=== PATIENT | female | born 1980 | race African-American/Black ===

== ENCOUNTER 2018-05-31 10:24 | Emergency (ER) | payer OTHER ==
[2018-05-31 10:29] VITALS: TEMP 97.7; BMI 34.3
--- NOTE | 2018-05-31 10:51 | PDOC ---
History of Present Illness - General Chief Complaint: Pain, Acute Stated Complaint: ABD PAIN, WEAKNESS Time Seen by Provider: 05/31/18 10:46 History Source: Patient Exam Limitations: No Limitations - History of Present Illness Initial Comments: 05/31/18 13:37 Patient is a 38-year-old female no past medical history who presents to the emergency room today with lower abdominal pain, shortness of breath and generalized weakness for 2 weeks. Patient states she had cold-like symptoms starting 2 weeks ago. She states that they resolved after about a week. However she states that she still feels weak and like she cannot catch her breath. She also admits to lower abdominal pain. Patient states that she was recently seen by her NET DEVELOPER. She was given Plan B to prevent . She also had STD testing done which she states was negative for both GC and chlamydia. Patient does not want STD testing done today. Patient is to nausea and vomiting. Denies fevers, chills, chest pain, palpitations, cough, diarrhea, constipation, frequency, urgency and hematuria. Past History - Travel Traveled outside of the country in the last 30 days: No Close contact w/someone who was outside of country & ill: No - Past Medical History Allergies/Adverse Reactions: Allergies Allergy/AdvReac Type Severity Reaction Status Date / Time No Known Allergies Allergy Verified 05/31/18 10:29 Home Medications: Ambulatory Orders Vit No.129/Iron/Folic [ One Daily Tablet] 1 each PO DAILY #14 tablet 05/31/18 COPD: No - Suicide/Smoking/Psychosocial Hx Smoking History: Never smoked Review of Systems - Review of Systems Able to Perform ROS?: Yes Comments:: 05/31/18 11:20 CONSTITUTIONAL: Present: generalized weakness Absent: fever, chills, diaphoresis, generalized weakness, malaise, loss of appetite HEENT: Absent: rhinorrhea, nasal congestion, throat pain, throat swelling, difficulty swallowing, mouth swelling, ear pain, eye pain, visual Changes CARDIOVASCULAR: Absent: chest pain, loss of consciousness, palpitations, irregular heart rate, peripheral edema RESPIRATORY: Present: shortness of breath Absent: cough, dyspnea with exertion, orthopnea, wheezing, stridor, hemoptysis GASTROINTESTINAL: Present: abdominal pain Absent: abdominal pain, abdominal distension, nausea, vomiting, diarrhea, constipation, melena, hematochezia GENITOURINARY: Absent: dysuria, frequency, urgency, hesitancy, hematuria, flank pain, genital pain MUSCULOSKELETAL: Absent: myalgia, arthralgia, joint swelling SKIN: Absent: rash, itching, pallor HEMATOLOGIC/IMMUNOLOGIC: Absent: easy bleeding, easy bruising, lymphadenopathy, frequent infections ENDOCRINE: Absent: unexplained weight gain, unexplained weight loss, heat intolerance, cold intolerance NEUROLOGIC: Absent: headache, focal weakness or paresthesias, dizziness, unsteady gait, seizure, mental status changes, bladder or bowel incontinence PSYCHIATRIC: Absent: anxiety, depression, suicidal or homicidal ideation, hallucinations. Is the patient limited Portuguese proficient: No *Physical Exam - Vital Signs Last Vital Signs Temp Pulse Resp BP Pulse Ox 97.7 F 75 18 133/76 100 05/31/18 10:27 05/31/18 10:27 05/31/18 10:27 05/31/18 10:27 05/31/18 10:27 - Physical Exam Comments: 05/31/18 11:20 GENERAL: Well developed, well nourished. Awake and alert. No acute distress. HEENT: Normocephalic, atraumatic. PERRLA, EOMI. No conjunctival pallor. Sclera are non- icteric. Moist mucous membranes. Oropharynx is clear. NECK: Supple. Full ROM. No JVD. Carotid pulses 2+ and symmetric, without bruits. No thyromegaly. No lymphadenopathy. CARDIOVASCULAR: Regular rate and rhythm. No murmurs, rubs, or gallops. Distal pulses are 2+ and symmetric. PULMONARY: No evidence of respiratory distress. Lungs clear to auscultation bilaterally. No wheezing, rales or rhonchi. ABDOMINAL: Soft. R adenexal tenderness. Non-distended. No rebound or guarding. No organomegaly. Normoactive bowel sounds. MUSCULOSKELETAL Normal range of motion at all joints. No bony deformities or tenderness. No CVA tenderness. EXTREMITIES: No cyanosis. No clubbing. No edema. No calf tenderness. SKIN: Warm and dry. Normal capillary refill. No rashes. No jaundice. NEUROLOGICAL: Alert, awake, appropriate. Cranial nerves 2-12 intact. No deficits to light touch and temperature in face, upper extremities and lower extremities. No motor deficits in the in face, upper extremities and lower extremities. Normoreflexic in the upper and lower extremities. Normal speech. Toes are down- going bilaterally. Gait is normal without ataxia. PSYCHIATRIC: Cooperative. Good eye contact. Appropriate mood and affect. Moderate Sedation - Procedure Monitoring Vital Signs: Procedure Monitoring Vital Signs Temperature 97.7 F 05/31/18 10:27 Pulse Rate 75 05/31/18 10:27 Respiratory Rate 18 05/31/18 10:27 Blood Pressure 133/76 05/31/18 10:27 O2 Sat by Pulse Oximetry (%) 100 05/31/18 10:27 ED Treatment Course - LABORATORY CBC & Chemistry Diagram: 05/31/18 11:00 05/31/18 11:00 Medical Decision Making - Medical Decision Making 05/31/18 13:29 Pt is a 38 y/o F who presents to the ED for two weeks of generalized weakness, nausea, vomiting, and cough; DDx includes but is not limited to , viral illness, PE, UTI, appendicitis -On exam, lungs CTAB, abdomen with RLQ tenderness, suprapubic tenderness and minimal LLQ discomfort -EKG: rate 66 BPM, NRS, qTC 408. Normal intervals normal axis, No acute ST-T wave changes -Urine (+); No vaginal bleeding. TVUS shows a single intrauterine with with a heart rate of 133. -D-Dimer is negative; unlikely PE -Urine is negative for infection -Symptoms most likely caused from ; pt feels better after receiving IV fluids -DC home to f/u with her NET DEVELOPER -I discussed the physical exam findings, ancillary test results and final diagnoses with the patient. I answered all of the patient's questions. The patient was satisfied with the care received and felt comfortable with the discharge plan and treatment plan. The Patient agrees to follow up with the primary care physician/specialist within 24-72 hours. Return precautions were given. *DC/Admit/Observation/Transfer Diagnosis at time of Disposition: Qualifiers: Weeks of gestation: less than 8 weeks Qualified Code(s): Z3A.01 - Less than 8 weeks gestation of - Discharge Dispostion Disposition: HOME Condition at time of disposition: Stable Decision to Admit order: No - Referrals Referrals: Ken Lanza MD [Staff Physician] - - Patient Instructions Printed Discharge Instructions: DI for -- Discomforts and Remedies Additional Instructions: You ultrasound shows a single intrauterine with a heart rate of 133 Your symptoms are most likely a result of your Your lab work was normal today Please start vitamins Follow up with your NET DEVELOPER as soon as possible Return to the ED for worsening pain, nausea, vomiting, weakness, or if you have any changes in your symptoms - Post Discharge Activity Forms/Work/School Notes: Back to Work
[2018-05-31] MEDS ORDERED: SODIUM CHLORIDE 1,000 ML IV STA (10:59)
--- NOTE | 2018-05-31 11:01 | PDOC ---
*Physical Exam - Vital Signs Last Vital Signs Temp Pulse Resp BP Pulse Ox 97.7 F 75 18 133/76 100 05/31/18 10:27 05/31/18 10:27 05/31/18 10:27 05/31/18 10:27 05/31/18 10:27 ED Treatment Course - LABORATORY CBC & Chemistry Diagram: 05/31/18 11:00 05/31/18 11:00 Medical Decision Making - Medical Decision Making 05/31/18 10:54 38 yo F presenting with shortness of breath and gasping for air Pt has had uri symptoms for the past 2 weeks since then she has noted shortness of breath Will do Labs CXR D dimer Re assess Pt seen by Midlevel Provider under my direct supervision Pt interviewed and examined Ancillary studies reviewed I agree with plan as outlined by Midlevel Provider 05/31/18 11:04 05/31/18 11:12 EKG - Twelve-lead EKG was performed and reviewed by me. There is normal sinus rhythm with a normal rate. The axis is normal. The intervals are normal. There are no ST or T wave abnormalities. Impression: Normal twelve-lead EKG 06/01/18 18:02 Laboratory Tests 05/31/18 05/31/18 05/31/18 11:00 11:00 11:00 WBC 6.1 Hgb 13.8 Hct 40.2 Plt Count 298 D-Dimer 455 Beta HCG, Quant 35833.5 US: IUP 6 weeks 4 days Will discharge to home Follow up with obstetrics Return to the ER for any other concerns or complaints *DC/Admit/Observation/Transfer Diagnosis at time of Disposition: - Discharge Dispostion Disposition: HOME Condition at time of disposition: Stable - Prescriptions Prescriptions: Vit No.129/Iron/Folic [ One Daily Tablet] 1 each PO DAILY #14 tablet - Referrals Referrals: Ken Lanza MD [Staff Physician] - - Patient Instructions Printed Discharge Instructions: DI for -- Discomforts and Remedies Additional Instructions: You ultrasound shows a single intrauterine with a heart rate of 133 Your symptoms are most likely a result of your Your lab work was normal today Please start vitamins Follow up with your EXPLOSIVE MAN as soon as possible Return to the ED for worsening pain, nausea, vomiting, weakness, or if you have any changes in your symptoms - Post Discharge Activity Forms/Work/School Notes: Back to Work
[2018-05-31 11:19] LABS: URINE APPEARANCE SLCLOUDY; URINE BILIRUBIN NEGATIVE (<2.0 mg/dL); URINE GLUCOSE (UA) NEGATIVE (NEGATIVE); URINE KETONE NEGATIVE (NEGATIVE); URINE LEUK ESTERASE TRACE (NEGATIVE); URINE NITRITE NEGATIVE (NEGATIVE); URINE PROTEIN NEGATIVE (NEGATIVE); URINE UROBILINOGEN NEGATIVE mg/dL (0.2-1.0)
[2018-05-31 11:20] LABS: BASO % 0.5 % (0-2.0); EOS % 0.3 % (0-4.5); HEMATOCRIT 40.2 % (32.4-45.2); HEMOGLOBIN 13.8 GM/dL (10.7-15.3); LYMPH % 27.6 % (8-40); MCH 28.2 pg (25.7-33.7); MCHC 34.2 g/dl (32.0-36.0); MEAN CELL VOLUME 82.4 fl (80-96); MEAN PLT VOLUME 8.2 fl (7.5-11.1); MONO % 8.4 % (3.8-10.2); NEUT % 63.2 % (42.8-82.8); PLATELET COUNT 298 K/MM3 (134-434); RBC 4.88 M/mm3 (3.60-5.2); RDW 15.9 % (11.6-15.6); WHITE BLOOD COUNT 6.1 K/mm3 (4.0-10.0)
[2018-05-31 11:23] LABS: EPI CELLS RARE /HPF (FEW); URINE BACTERIA RARE /hpf (NONE SEEN); URINE COLOR DK YELLOW; URINE MUCUS MANY
[2018-05-31 11:33] LABS: INR 1.08 (0.83-1.09); PROTHROMBIN TIME (PATIENT) 12.7 SEC (9.7-13.0)
[2018-05-31 11:49] LABS: ALBUMIN 3.4 g/dl (3.4-5.0); ALK PHOS 87 U/L (45-117); ANION GAP 6 MMOL/L (8-16); BILIRUBIN,TOTAL 0.3 mg/dL (0.2-1); BLOOD UREA NITROGEN 10 mg/dL (7-18); CALCIUM 9.4 mg/dL (8.5-10.1); CHLORIDE 104 mmol/L (98-107); CO2 27 mmol/L (21-32); CREATININE 0.6 mg/dL (0.55-1.3); GLUCOSE,RANDOM 98 mg/dL (74-106); POTASSIUM 4.2 mmol/L (3.5-5.1); SGOT/AST 12 U/L (15-37); SGPT/ALT 20 U/L (13-61); SODIUM 137 mmol/L (136-145); TOT PROT 7.5 g/dl (6.4-8.2)
--- NOTE | 2018-05-31 11:53 | EKG ---
Test Reason : Blood Pressure : / mmHG Vent. Rate : 066 BPM Atrial Rate : 066 BPM P-R Int : 156 ms QRS Dur : 100 ms QT Int : 390 ms P-R-T Axes : 059 019 033 degrees QTc Int : 408 ms NORMAL SINUS RHYTHM NORMAL ECG NO PREVIOUS ECGS AVAILABLE Confirmed by MARGOT BERNARD, GREGORY ([id number]) on 05/31/2018 11:53:24 AM Referred By: Confirmed By:GREGORY FROST MD
[2018-05-31 13:59] VITALS: BP 129/64; PULSE 71
== END 2018-05-31 13:59 | disposition home or self-care (01) ==
LOC: JER 10:24
PROC: 3E0337Z Introduction of Electrolytic and Water Balance Substance into Peripheral Vein, Percutaneous Approach (ICD-10-PCS; principal; 2018-05-31)
DX: O26.891 Other specified pregnancy related conditions, first trimester (principal); Z3A.01 Less than 8 weeks gestation of pregnancy
CPT/HCPCS: 36415; 76817-TC; 80053; 81003; 81015; 84702; 84703; 85025; 85379; 85610; 87086; 93005; 93010; 96360; 99283-25; J7030

== ENCOUNTER → 2018-09-19 | Emergency (ER) | payer OTHER ==
[~2018-09-19] MED LIST: KETOROLAC TROMETHAMINE 60 MG/2 ML VIAL IM ONE; KETOROLAC TROMETHAMINE 60 MG/2 ML VIAL ONE; LIDOCAINE 5% TOPICAL PATCH ONE; LIDOCAINE 5% TOPICAL PATCH TP ONE; LIDOCAINE PATCH REMOVAL MC SCH
[2018-09-19 08:48] VITALS: BP 137/85; PULSE 67; TEMP 97.9; BMI 37.2
--- NOTE | 2018-09-19 09:14 | PDOC ---
History of Present Illness - General Chief Complaint: Pain, Acute Stated Complaint: STIFF NECK Time Seen by Provider: 09/19/18 08:43 History Source: Patient Exam Limitations: No Limitations Past History - Travel Traveled outside of the country in the last 30 days: No Close contact w/someone who was outside of country & ill: No - Past Medical History Allergies/Adverse Reactions: Allergies Allergy/AdvReac Type Severity Reaction Status Date / Time No Known Allergies Allergy Verified 05/31/18 10:29 Home Medications: Ambulatory Orders Vit No.129/Iron/Folic [ One Daily Tablet] 1 each PO DAILY #14 tablet 05/31/18 Cyclobenzaprine HCl [Flexeril -] 10 mg PO HS #10 tablet 09/19/18 Ibuprofen 600 mg PO Q6H #30 tablet 09/19/18 COPD: No - Immunization History Immunization Up to Date: No - Suicide/Smoking/Psychosocial Hx Smoking History: Never smoked Have you smoked in the past 12 months: No Information on smoking cessation initiated: No Hx Alcohol Use: No Drug/Substance Use Hx: No Review of Systems - Review of Systems Able to Perform ROS?: Yes Comments:: 09/19/18 09:19 CONSTITUTIONAL: Absent: fever, chills, diaphoresis, generalized weakness, malaise, loss of appetite HEENT: Present: rhinorrea, postnasal drip Absent: rhinorrhea, nasal congestion, throat pain, throat swelling, difficulty swallowing, mouth swelling, ear pain, eye pain , visual Changes MUSCULOSKELETAL: Present: neck pain Absent: myalgia, arthralgia, joint swelling SKIN: Absent: rash, itching, pallor NEUROLOGIC: Absent: headache, focal weakness or paresthesias, dizziness, unsteady gait, seizure, mental status changes, bladder or bowel incontinence Is the patient limited [place]ican proficient: No *Physical Exam - Vital Signs Last Vital Signs Temp Pulse Resp BP Pulse Ox 97.9 F 67 18 137/85 98 09/19/18 08:38 09/19/18 08:38 09/19/18 08:38 09/19/18 08:38 09/19/18 08:38 - Physical Exam Comments: 09/19/18 09:20 GENERAL: Well developed, well nourished. Awake and alert. No acute distress. HEENT: Normocephalic, atraumatic. PERRLA, EOMI. No conjunctival pallor. Sclera are non- icteric. Moist mucous membranes. Oropharynx is clear. Postnasal drip noted. NECK: Supple. Full ROM. TTP of the R trapezius muscle into the occiput. No JVD. Carotid pulses 2+ and symmetric, without bruits. No thyromegaly. No lymphadenopathy. Normal range of motion at all joints. No bony deformities or tenderness. No CVA tenderness. SKIN: Warm and dry. Normal capillary refill. No rashes. No jaundice. NEUROLOGICAL: Alert, awake, appropriate. Cranial nerves 2-12 intact. No deficits to light touch and temperature in face, upper extremities and lower extremities. No motor deficits in the in face, upper extremities and lower extremities. Normoreflexic in the upper and lower extremities. Normal speech. Toes are down- going bilaterally. Gait is normal without ataxia. Medical Decision Making - Medical Decision Making 09/19/18 09:20 The patient is a 38-year-old female with no past medical history who presents to the ER today for 4 days of neck stiffness and one week of postnasal drip. Patient states that she woke from sleep 4 days ago with a stiff neck on the left. She states that since then the left side has felt better and now the right side is stiff. She had been taking Motrin at home with little relief of her symptoms. She also admits to postnasal drip and a dry cough. She believes she has seasonal allergies. Denies fevers, chills, visual changes, nausea, vomiting, lightheadedness and dizziness. A/P: Neck pain, seasonal allergies On exam patient tender to palpation of the right trapezius muscle into the insertion at the occiput. Muscle also feels as if it is spasming. Toradol and lidocaine patch given with relief of symptoms. We will start patient on allergy regimen for postnasal drip. Patient to follow-up with her primary care doctor. Discharge home I discussed the physical exam findings, ancillary test results and final diagnoses with the patient. I answered all of the patient's questions. The patient was satisfied with the care received and felt comfortable with the discharge plan and treatment plan. The Patient agrees to follow up with the primary care physician/specialist within 24-72 hours. Return precautions were given. *DC/Admit/Observation/Transfer Diagnosis at time of Disposition: Neck pain, Seasonal allergies - Discharge Dispostion Disposition: HOME Condition at time of disposition: Stable Decision to Admit order: No - Referrals Referrals: Obi Marie [Primary Care Provider] - - Patient Instructions Printed Discharge Instructions: Allergic Rhinitis, DI for Neck Pain Additional Instructions: you are evaluated for your neck pain today. It is most likely a muscle spasm. Please take the Motrin 600 mg every 6 hours as needed for pain not to exceed 3000 mg a day. Take the Flexeril before you go to sleep. Do not drink or drive after taking this medication as it may make you sleepy or drowsy You may apply warm compresses to the area. Please start taking the Zyrtec and Flonase daily as directed for your allergies. Please follow-up with her primary care doctor this week. Return to the ER for worsening neck pain, numbness and tingling down the extremities, fever or if you have any changes in your symptoms. - Post Discharge Activity Forms/Work/School Notes: Back to Work
== END | disposition home or self-care (01) ==
LOC: JERFT 08:33
PROC: 3E0233Z Introduction of Anti-inflammatory into Muscle, Percutaneous Approach (ICD-10-PCS; principal; 2018-09-19)
DX: M54.2 Cervicalgia (principal); J30.2 Other seasonal allergic rhinitis
CPT/HCPCS: 99281-25

== ENCOUNTER 2018-10-17 13:05 | Emergency (ER) | payer OTHER | END 2018-10-17 17:00 | disposition home or self-care (01) | LOC: JER 13:05 ==

== ENCOUNTER 2020-07-05 01:44 | Emergency (ER) | payer OTHER ==
[2020-07-05 02:33] VITALS: PULSE 65; TEMP 98.2; BMI 34.3
[2020-07-05] MEDS ORDERED: HYDROCHLOROTHIAZIDE 25 MG TABLET (FP) PO ONE (04:05)
[2020-07-05 04:10] VITALS: BP 145/90
[2020-07-05] MEDS ORDERED: HYDROCHLOROTHIAZIDE 25 MG TABLET (FP) ONE (04:18)
== END 2020-07-05 04:24 | disposition home or self-care (01) ==
LOC: JER 01:44
DX: R07.9 Chest pain, unspecified (principal)
CPT/HCPCS: 71046-TC-FY; 93005; 93010; 99284-25

== ENCOUNTER 2021-05-04 18:38 | Emergency (ER) | payer OTHER ==
[2021-05-04 19:17] VITALS: BP 158/88; PULSE 69; TEMP 97.7; BMI 41.3
[2021-05-05 00:05] LABS: URINE APPEARANCE Error; URINE BILIRUBIN NEGATIVE (NEGATIVE); URINE COLOR YELLOW; URINE GLUCOSE (UA) NEGATIVE (NEGATIVE); URINE KETONE TRACE (NEGATIVE); URINE LEUK ESTERASE NEGATIVE (NEGATIVE); URINE NITRITE NEGATIVE (NEGATIVE); URINE PROTEIN NEGATIVE (NEGATIVE); URINE UROBILINOGEN 0.2 mg/dL (0.2-1.0)
[2021-05-05 00:08] LABS: HCG,QUALITATIVE URINE Negative
[2021-05-05] MEDS ORDERED: METHOCARBAMOL 500 MG TABLET PO ONE (00:24)
[2021-05-05] MEDS ORDERED: ACETAMINOPHEN 325 MG TABLET (FP) PO ONE (00:24)
[2021-05-05] MEDS ORDERED: LIDOCAINE 5% TOPICAL PATCH TP ONE (00:24)
[2021-05-05] MEDS ORDERED: ACETAMINOPHEN 325 MG TABLET (FP) ONE (00:29)
[2021-05-05] MEDS ORDERED: LIDOCAINE 5% TOPICAL PATCH ONE (00:29)
[2021-05-05] MEDS ORDERED: METHOCARBAMOL 500 MG TABLET ONE (00:30)
[2021-05-05] MEDS ORDERED: LIDOCAINE PATCH REMOVAL MC SCH (22:00)
== END 2021-05-05 01:31 | disposition home or self-care (01) ==
LOC: JER 18:38
DX: S39.012A Strain of muscle, fascia and tendon of lower back, initial encounter (principal); W01.0XXA Fall on same level from slipping, tripping and stumbling without subsequent striking against object, initial encounter; Y92.830 Public park as the place of occurrence of the external cause
CPT/HCPCS: 72100-TC-FY; 81003; 84703; 87086; 99284-25

== ENCOUNTER 2022-09-01 19:59 | Emergency (ER) | payer OTHER ==
[2022-09-01 20:06] VITALS: BP 184/90; PULSE 78; RESP 18; TEMP 98.1; BMI 36.0
[2022-09-01] MEDS ORDERED: BACITRACIN ZINC 15 GM TUBE TOPICAL OINTMENT ONE (21:34)
== END 2022-09-01 22:00 | disposition home or self-care (01) ==
LOC: JERFT 19:59 → JER 19:59 → JERFT 22:00
DX: R21 Rash and other nonspecific skin eruption (principal); T78.40XA Allergy, unspecified, initial encounter
CPT/HCPCS: 99282-25